=== PATIENT | male | born 1995 | race African-American/Black ===

== ENCOUNTER 2016-12-16 18:18 | Emergency (ER) | payer OTHER ==
[2016-12-16 18:24] VITALS: BP 124/74
--- NOTE | 2016-12-16 18:33 | UC ---
Throat Pain/Nasal Sam HPI - HPI Summary HPI Summary: [address] AND FEVER. NO COUGH, EAR PAIN, N/V/D. FEELS TIRED. - History of Current Complaint Chief Complaint: UCRespiratory Stated Complaint: SORE THROAT, AND FEVER Time Seen by Provider: 12/16/16 18:31 Hx Obtained From: Patient Onset/Duration: Gradual Onset, Lasting Days, Still Present Severity: Moderate Pain Intensity: 6 Pain Scale Used: 0-10 Numeric Cough: None Associated Signs & Symptoms: Positive: Fever. Negative: Nasal Discharge, Vomiting, Rash - Allergies/Home Medications Allergies/Adverse Reactions: Allergies Allergy/AdvReac Type Severity Reaction Status Date / Time No Known Allergies Allergy Verified 12/16/16 18:24 Home Medications: Home Medications NK [No Home Medications Reported] 12/16/16 [History Confirmed 12/16/16] PMH/Surg Hx/FS Hx/Imm Hx Previously Healthy: Yes - Surgical History Surgical History: None - Family History Known Family History: Negative: Hypertension - Social History Alcohol Use: None Substance Use Type: None Smoking Status (MU): Never Smoked Tobacco Review of Systems Constitutional: Fever, Fatigue ENT: Sore Throat Respiratory: Negative Cardiovascular: Negative Gastrointestinal: Negative All Other Systems Reviewed And Are Negative: Yes Physical Exam Triage Information Reviewed: Yes Appearance: Well-Appearing, No Pain Distress, Well-Nourished Vital Signs: Initial Vital Signs Temp 99.7 F 12/16/16 18:22 Pulse 70 12/16/16 18:22 Resp 12 12/16/16 18:22 BP 124/74 12/16/16 18:22 Pulse Ox 99 12/16/16 18:22 Vital Signs Reviewed: Yes Eyes: Positive: Conjunctiva Clear ENT: Positive: Hearing grossly normal, Pharyngeal erythema, TMs normal, Tonsillar exudate, Muffled/hoarse voice Neck: Positive: Supple, Tenderness @ - SPFL CERVICAL LAD, Enlarged Nodes @ - SPFL CERVICAL LAD Respiratory Exam: Normal Cardiovascular Exam: Normal Abdomen Description: Positive: Soft Musculoskeletal: Positive: No Edema Neurological: Positive: Alert Psychological: Positive: Age Appropriate Behavior Skin: Negative: rashes Diagnostics - Laboratory Diagnostic Studies Completed/Ordered: RAPID STREP POSITIVE Throat Pain/Nasal Course/Dx - Differential Dx/Diagnosis Provider Diagnoses: STREP PHARYNGITIS Discharge - Discharge Plan Condition: Stable Disposition: HOME Patient Education Materials: Strep Throat (ED) Referrals: [facility] Stanley BLANCA [Medical Doctor] - If Needed Additional Instructions: RAPID STREP POSITIVE YOU RECEIVED BICILLIN [place] TODAY WHICH WILL TREAT YOUR STREP. OTC CHLORASEPTIC OR CEPACOL LOZENGES AND/OR IBUPROFEN FOR SORE THROAT NEEDED. ONCE SYMPTOMS RESOLVED - NEW TOOTHBRUSH DO NOT SHARE FOOD, DRINK, UTENSILS
[2016-12-16] MEDS ORDERED: Penicillin G Benzathine 2.4MU* 2,400,000 UNITS/4 ML SYR IM ONE (18:47)
== END 2016-12-16 19:20 | disposition home or self-care (01) ==
LOC: UCEAST 18:18
DX: J02.0 Streptococcal pharyngitis (principal)
CPT/HCPCS: 87651; 90472; 99201; G0463; J0561